=== PATIENT | female | born 1985 | race Caucasian/White ===

== ENCOUNTER 2024-12-17 09:45 | Outpatient (CLI) | payer OTHER, SELFPAY ==
[2024-12-17 10:31] LABS: Hematocrit 37.9 % (37.0-47.0); Hemoglobin 12.9 g/dL (12.0-15.0); Mean Corpuscular HGB Conc 34.0 g/dl (32-36); Mean Corpuscular Hemoglobin 30.5 pg (26-34); Mean Corpuscular Volume 89.6 fl (80-100); Platelet Count Result 155 k/mm3 (150-375); Red Blood Count 4.23 M/mm3 (4.2-5.4); White Blood Count 6.0 K/mm3 (4.5-10.0)
[2024-12-17 11:14] LABS: Syphilis IgG/IgM Antibody Non-Reactive (Nonreactive)
[2024-12-17 11:18] LABS: Hepatitis B Surface Antigen Negative (Negative)
[2024-12-17 12:07] LABS: Beta HCG Quantitative 68460.00 mIU/ML
[2024-12-18 07:08] LABS: Cytomegalovirus (CMV) Ab, IgG 2.70 U/mL (0.00-0.59)
[2024-12-19 12:08] LABS: Varicella-Zoster Ab, IgG Reactive (Non Reactive); Varicella-Zoster Ab, IgM <0.91 index (0.00-0.90)
[2024-12-20 13:09] LABS: Parvovirus B19, IgG 0.2 index (0.0-0.8); Parvovirus B19, IgM 0.1 index (0.0-0.8)
== END 2024-12-17 09:46 | disposition home or self-care (01) ==
LOC: ANHLAB 09:53
PROVIDERS: Visit Provider Student in an Organized Health Care Education/Training Program
DX: N91.2 Amenorrhea, unspecified (principal)
CPT/HCPCS: 36415; 84702; 85027; 86593; 86644; 86747; 86762; 86787; 86850; 86900; 86901; 87086; 87340